=== PATIENT | female | born 1975 | race Hispanic/Latino ===

== ENCOUNTER 2023-08-15 15:02 | Emergency (ER) | payer SELFPAY ==
[2023-08-15] MEDS ORDERED: Ondansetron PF 4 MG/2 ML Vial ONE (15:37)
[2023-08-15] MEDS ORDERED: Aspirin Chewable 81 MG TAB ONE (15:37)
[2023-08-15] MEDS ORDERED: Morphine 4 MG/ML VIAL ONE (15:37)
[2023-08-15 15:41] LABS: #Basophils 0.1 10x3/uL (0.0-0.2); #Eosinphils 0.1 10x3/uL (0.0-0.5); #Monocytes 0.3 10x3/uL (0.0-1.1); #Neutrophils 6.5 10x3/uL (1.5-8.4); %Basophils 0.6 % (0.0-2.0); %Eosinophils 1.6 % (0.0-6.0); %Lymphocytes 21.5 % (18.0-47.0); %Monocytes 3.6 % (0.0-10.0); %Neutrophils 72.5 % (40.0-75.0); Hematocrit 40.2 % (34.9-44.5); Hemoglobin 13.7 g/dL (12.0-15.5); Mean Corpuscular HGB CONC 34.1 g/dL (32.0-36.0); Mean Corpuscular Hemoglobin 30.4 pg (27.0-33.0); Mean Corpuscular Volume 89.1 fl (81.6-98.3); Mean Platelet Volume 10.2 fl (7.4-10.4); Platelet Count 325 10x3/uL (150-450); Red Blood Cell (RBC) Count 4.51 10x6/uL (3.90-5.03)
[2023-08-15 15:53] LABS: ALT (SGPT) 23 U/L (8-55); AST (SGOT) 19 U/L (5-34); Albumin 4.4 g/dL (3.5-5.0); Alkaline Phosphatase 65 U/L (40-110); Anion Gap 14 mmol/L (10-20); BUN (Urea Nitrogen) 13 mg/dL (7.0-18.7); Bilirubin, Total 0.4 mg/dL (0.2-1.2); Calc. Creatinine Clearance 0 mL/min (70-130); Calcium 9.3 mg/dL (7.8-10.44); Carbon Dioxide 24 mmol/L (22-29); Chloride 103 mmol/L (98-107); Estimated GFR 96; Globulin 3.2 g/dL (2.4-3.5); Glucose 218 mg/dL (70-105); Potassium 4.1 mmol/L (3.5-5.1); Protein, Total 7.6 g/dL (6.0-8.3); Sodium 137 mmol/L (136-145)
[2023-08-15] MEDS ORDERED: HYDROcodone/Acetaminophen 10/325 mg Tablet ONE (16:44)
[2023-08-15 16:51] LABS: Troponin I 0.059 ng/mL (< 0.028)
== END 2023-08-15 16:55 | disposition home or self-care (01) ==
LOC: CSHERS 15:02
DX: R07.9 Chest pain, unspecified (principal); E11.9 Type 2 diabetes mellitus without complications
CPT/HCPCS: 71045; 80053; 84484; 85025; 85379; 93005; 96374; 96375; J2270; J2405